=== PATIENT | female | born 1985 ===

== ENCOUNTER 2024-12-25 08:11 | Inpatient (IN) | payer OTHER ==
[~2024-12-25] VITALS: Ht 121.9 cm; Wt 72.6 kg
[~2024-12-25 08:11] MED LIST: ALPRAZOLAM0.25 MG; FIORICET; MECLIZINE HCL12.5 MG; MELOXICAM7.5 MG
[2024-12-25 09:41] LABS: RH POSITIVE
[2024-12-25 14:58] LABS: PROTHROMBIN TIME 10.9 SECONDS (9.0-11.5)
[2024-12-31] MEDS ORDERED: CEFAZOLIN SODIUM 1,000 MG VIAL ONE ×2 (11:44→20:49)
[2024-12-31] MEDS ORDERED: POVIDONE-IODINE 118 ML BOTT TOP ONE (13:28)
[2024-12-31] MEDS ORDERED: SURGIFLO APPLICATOR 1 EACH APPL TOP ONE (14:46)
[2024-12-31] MEDS ORDERED: HEMOSTATIC MATRIX 1 KIT KIT TOP ONE ×2 (14:46→14:54)
[2024-12-31] MEDS ORDERED: SUGAMMADEX SODIUM 200 MG/2 ML VIAL IV ONE (15:14)
[2024-12-31] MEDS ORDERED: MORPHINE SULFATE 4 MG/ML VIAL IV PRN (15:30)
[2024-12-31] MEDS ORDERED: RINGERS SOLUTION,LACTATED 1,000 ML IV SCH (15:45)
[2024-12-31] MEDS ORDERED: MORPHINE SULFATE 4 MG,MORPHINE SULFATE 2 MG IV PRN (15:45)
[2024-12-31] MEDS ORDERED: ONDANSETRON HCL 2 MG/ML VIAL IV PRN (15:45)
[2024-12-31] MEDS ORDERED: MORPHINE SULFATE 4 MG/ML VIAL IV ONE ×2 (16:05→17:05)
[2024-12-31] MEDS ORDERED: LEVALBUTEROL HCL 0.63 MG/3 ML SOLUTION IH SCH ×2 (17:00→21:00)
[2024-12-31] MEDS ORDERED: ONDANSETRON HCL 2 MG/ML VIAL IV ONE (17:05)
[2024-12-31] MEDS ORDERED: CEFAZOLIN SODIUM 1,000 MG VIAL IV SCH (18:00)
[2024-12-31] MEDS ORDERED: ALPRAzolam 0.5 MG TABLET PO SCH (21:00)
[2024-12-31 21:40] LABS: BASO % 0.1 % (0.1-1.2); EOS # 0.01 (0.04-0.54); EOS % 0.1 % (0.7-7.0); HEMATOCRIT 35.3 % (34.1-44.9); LYMPH # 0.64 (1.18-3.74); LYMPH % 4.1 % (19.3-53.1); MEAN CORPUSCULAR HEMOGLOBIN 29.3 pg (25.6-32.2); MONO # 0.76 (0.24-0.82); MONO % 4.8 % (4.7-12.5); NEUT # 14.21 (1.56-6.13); NEUT % 90.6 % (34.0-71.1); PLATELET COUNT 278 K/uL (163-369); RED BLOOD COUNT 4.09 M/uL (3.93-5.22); RED CELL DISTRIBUTION WIDTH 12.5 % (11.6-14.4)
[2024-12-31 22:42] VITALS: BP 122/76
[2025-01-01 01:52] VITALS: BP 109/68
[2025-01-01] MEDS ORDERED: GABAPENTIN 300 MG CAPSULE PO SCH (01:56)
[2025-01-01] MEDS ORDERED: ACETAMINOPHEN 500 MG GEL..CAP PO PRN (02:00)
[2025-01-01] MEDS ORDERED: IBU800 MG PO (07:04)
[2025-01-01] MEDS ORDERED: NEURONTIN300 MG PO (07:05)
[2025-01-01] MEDS ORDERED: SIMETHICONE80 MG PO (07:05)
[2025-01-01 08:00] VITALS: BP 104/66
[2025-01-01] MEDS ORDERED: ENOXAPARIN SODIUM 40 MG/0.4 ML SYRINGE SUBCUTANEO SCH (09:00)
== END 2025-01-01 11:45 | disposition home or self-care (01) | DRG 743 ==
LOC: O/R 12-31 05:18 → OB/GYN 12-31 05:18 → SURH 12-31 09:45 → OB/GYN 12-31 17:41
PROVIDERS: ADMIT Obstetrics & Gynecology Gynecology; ATTEND Obstetrics & Gynecology Gynecology
PROC: 0UT74ZZ Resection of Bilateral Fallopian Tubes, Percutaneous Endoscopic Approach (ICD-10-PCS; 2024-12-31)
PROC: 0UT94ZZ Resection of Uterus, Percutaneous Endoscopic Approach (ICD-10-PCS; principal; 2024-12-31 09:45)
DX: N72 Inflammatory disease of cervix uteri (principal); N92.1 Excessive and frequent menstruation with irregular cycle